=== PATIENT | male | born 1940 | race Caucasian/White ===

== ENCOUNTER → 2017-08-08 | Outpatient (CLI) | payer OTHER, MEDICARE | LOC: FIMAGING 09:18 | PROVIDERS: ATTEND Family Medicine | DX: Z13.820 Encounter for screening for osteoporosis (principal); M81.0 Age-related osteoporosis without current pathological fracture; Z85.3 Personal history of malignant neoplasm of breast ==

== ENCOUNTER 2017-10-19 05:50 | Observation (INO) | payer OTHER, MEDICARE ==
--- NOTE | 2017-10-18 15:34 | GHP ---
[f rep st] PREOP HISTORY AND PHYSICAL ADMISSION DIAGNOSIS: Benign prostatic hyperplasia with prostatic calcifications. HISTORY: This is a 77-year-old gentleman who originally was referred because of urinary hematuria an d we had seen him in the office. He had previous photovaporization of the prostate and upon return n ow on cystoscopy, had a stone in the left lateral part of the prostate. We have recommended he under go transurethral resection of this area in an attempt to clean out the stone to prevent hematuria and obstruction. PSA in 2017 was 0.4. PAST MEDICAL HISTORY: Left breast cancer, coronary artery disease, hypercholesterolemia. PAST SURGICAL HISTORY: Back surgery, breast, he had a deep brain stimulator, heart bypass, knee surg linda, laser prostatectomy, shoulder. MEDICATIONS: Alendronate 70 mg, aspirin 81 mg, atorvastatin 80 mg, CoQ10, gabapentin 300 mg, lisinop ril 10 mg, Lovaza 1 g, Lyrica 50 mg, 20 mg, Vytorin 10-80, and Zoloft. ALLERGIES: No known drug allergies. FAMILY HISTORY: Positive for hypertension and heart disease. SOCIAL HISTORY: Moderate drinker. Former smoker. REVIEW OF SYSTEMS: Negative cardiac, respiratory, GI, and endocrine, on the present status. PHYSICAL EXAMINATION: VITAL SIGNS: Stable. CHEST: Clear. HEART: Regular rate and rhythm. ABDOM EN: Normal. No organomegaly, rebound, or guarding. LOWER EXTREMITIES: Normal. At the present time, he is admitted for the TURP. I reviewed his endoscopic notes and at the present time after informed consent, he is to undergo the TUR of the prostate. Copy requested to: /[id number]/[facility]
[2017-10-19] MEDS ORDERED: LIDOCAINE 2% JELLY 20 ML (UROJECT) ONE (06:49)
[2017-10-19] MEDS ORDERED: ceFAZolin 2 GM/SWFI 2 GM/20 ML SYR IVP ONE (07:01)
--- NOTE | 2017-10-19 07:01 | PDHPUP ---
History & Physical Update H&P update statement: This history and physical update is based on an assessment of the patient which was completed after admission or registration (within 24 hours), but prior to the surgery/procedure. H&P update: H&P reviewed & patient examined, no change in patient's condition since H&P completed
--- NOTE | 2017-10-19 07:09 | PDANEPAE ---
ANE History of Present Illness turp ANE Past Medical History - Cardiovascular History Hx Hypertension: Yes Hx Arrhythmias: No Hx Chest Pain: No Hx Coronary Artery / Peripheral Vascular Disease: Yes Hx CHF / Valvular Disease: No Hx Palpitations: No Cardiovascular History Comment: CABG X4 - 2005. CARDIAC CATH 2013. HYPERCHOLESTEROLEMIA - Pulmonary History Hx COPD: No Hx Asthma/Reactive Airway Disease: No Hx Recent Upper Respiratory Infection: No Hx Oxygen in Use at Home: No Hx Sleep Apnea: No Sleep Apnea Screening Result - Last Documented: Negative - Neurologic History Hx Cerebrovascular Accident: No Hx Seizures: No Hx Dementia: No Neurologic History Comment: DBS FOR TREMORS - GENERATORS IN CHEST - Endocrine History Hx Diabetes: No Hypothyroid: No Hyperthyroid: No - Renal History Hx Renal Disorders: Yes Renal History Comment: PROSTATE - Liver History Hx Hepatic Disorders: No - Neurological & Psychiatric Hx Hx Neurological and Psychiatric Disorders: Yes Neurological / Psychiatric History Comment: NEUROPATHY - Cancer History Hx Cancer: Yes Cancer History Comment: BREAST CANCER - Congenital Disorder History Hx Congenital Disorders: No - GI History Hx Gastrointestinal Disorders: No - Other Health History Other Health History: NEG - Chronic Pain History Chronic Pain: Yes (FEET NEUROPATHY & BACK) - Surgical History Prior Surgeries: CARDIAC CATH 2013. CABG X4 2005. CATARACTS. DBS IMPLANT- 2011/CHEST GENERATORS. AVEL TKA. AVEL MASTECTOMY. AVEL SHOULDER REPLACED. THUMB SURG L. ULNAR NERVE TRANSPORT ANE Review of Systems Review of Systems: - Exercise capacity METS (RN): 4 METS ANE Patient History - Allergies Allergies/Adverse Reactions: No Known Allergies Allergy (Verified 10/19/17 06:47) - Home Medications Home Medications: Alendronate Sodium [Fosamax 70 MG (*)] 70 mg PO TU@0700 10/04/17 [Last Taken ] Atorvastatin Calcium [Lipitor 40 mg (*)] 80 mg PO HS 10/04/17 [Last Taken ] Calcium Carb W/Vit D [Calcium Carb W/Vit D 500/200 (*)] 500 mg PO DAILY [Last Taken 10/12/17] Cholecalciferol Vit D3 [Vitamin D3 2000 units tab (OTC)] 2,000 units PO DAILY [Last Taken 10/12/17] Finasteride [Proscar 5 MG (*)] 5 mg PO DAILY 10/04/17 [Last Taken 10/17/17] Glucosamine Sulfate [Glucosamine Sulfate 500 MG (*)] 1,500 mg PO DAILY 10/04/17 [Last Taken 10/12/17] Herbals/Supplements -Info Only 1 ea PO DAILY 10/04/17 [Last Taken 10/12/17] Lisinopril [Zestril 10 mg (*)] 10 mg PO DAILY 10/04/17 [Last Taken 10/17/17] Magnesium Oxide [Magnesium Oxide 400 mg (*)] 400 mg PO DAILY 10/04/17 [Last Taken 10/12/17] Naproxen Sodium [Aleve 220 MG (*)] 220 mg PO BID PRN 10/04/17 [Last Taken ] Pregabalin [Lyrica 50mg (*)] 50 mg PO BID 10/04/17 [Last Taken 10/17/17] Sertraline HCl [Zoloft 50mg (*)] 50 mg PO DAILY 10/04/17 [Last Taken 10/17/17] Tamoxifen Citrate 20 mg PO DAILY 10/04/17 [Last Taken 10/12/17] - NPO status NPO Status: no food or drink >8 hours - Smoking Hx Smoking Status: Former smoker - Family Anes Hx Family Hx Anesthesia Complications: NEG ANE Labs/Vital Signs - Vital Signs Height: 172.72 cm Weight: 79.379 kg ANE Physical Exam - Airway Mallampati Score: Class 2 Mouth exam: normal dental/mouth exam - Pulmonary Pulmonary: no respiratory distress - Cardiovascular Cardiovascular: regular rate and rhythym - ASA Status ASA Status: II ANE Anesthesia Plan Anesthesia Plan: GA w LMA
[2017-10-19] MEDS ORDERED: MIDAZOLAM 2 MG/2 ML VIAL IVP ONE (07:15)
[2017-10-19] MEDS ORDERED: MIDAZOLAM 2 MG/2 ML VIAL ONE (07:17)
[2017-10-19] MEDS ORDERED: KETOROLAC 30 MG/1 ML SDV ONE (07:23)
[2017-10-19] MEDS ORDERED: LIDOCAINE 2% 5 ML SDV ONE (07:23)
[2017-10-19] MEDS ORDERED: fentaNYL 100 MCG/2 ML INJ ONE (07:23)
[2017-10-19] MEDS ORDERED: PROPOFOL 200 MG/20 ML VIAL ONE (07:23)
[2017-10-19] MEDS ORDERED: DEXAMETHASONE 4 MG/ML VIAL ONE ×2 (07:23)
[2017-10-19] MEDS ORDERED: ROCURONIUM 50 MG/5 ML VIAL ONE (07:56)
[2017-10-19] MEDS ORDERED: ONDANSETRON 4 MG/2 ML VIAL IVP PRN (08:25)
[2017-10-19] MEDS ORDERED: fentaNYL 100 MCG/2 ML INJ IVP PRN (08:25)
[2017-10-19] MEDS ORDERED: PHENYLEPHRINE HCL 100 MCG/ML SYR IVP PRN (08:25)
[2017-10-19] MEDS ORDERED: NALOXONE HCL 0.4 MG/ML INJ IVP PRN (08:25)
[2017-10-19] MEDS ORDERED: ALBUTEROL 3 ML DEYVIAL IH PRN (08:25)
--- NOTE | 2017-10-19 08:25 | POSTANESTH ---
Post Anesthetic Evaluation Cardiovascular Status: Normal, Stable Respiratory Status: Normal, Stable Level of Consciousness/Mental Status: Can Participate in Eval Pain Control: Adequate, Prn Tx Ordered Nausea/Vomiting Control: Adequate, Prn Tx Ordered Complications Possibly Related to Anesthesia: None Noted
--- NOTE | 2017-10-19 08:32 | GOP ---
[f rep st] OPERATIVE REPORT DATE OF OPERATION: 10/19/2017 SURGEON: Justen Carrion MD ANESTHESIA: General anesthesia. 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 POSTOPERATIVE DIAGNOSIS: Inflammatory benign prostatic hypertrophy with obstruction and prostatic ca lculi. PROCEDURE PERFORMED: Transurethral resection of the prostate. FINDINGS: DESCRIPTION OF PROCEDURE: After appropriate time-out, being prepped and draped in normal sterile fas hion, the scope was passed in the bladder. Bladder had +3 trabeculation and no tumors or stones wer e in the bladder. He had an inflammatory area on the left side of the prostate with previous stone t hat had been impregnated. So at that point, I was able to resect the prostate at the right lateral l obe, right portion of the posterior lobe, left lateral lobe and left portion of the posterior lobe. I did not resect the bladder neck because of previous GreenLight laser and I left some anterior tissu e of the prostate in attempt to prevent any bladder neck contraction. At the end of the procedure, b ladder was Ellik 'd free of all chips and clots. Visualization revealed no residual chips or clots. Ureteral orifices preserved. External sphincter approximated at the midline symmetrically and Uro-j et placed in urethra. A 22 three-way catheter passed in the bladder, 60 cc balloon inflated, tractio n placed and irrigated clear. He will be admitted for postoperative care. I will talk to his a bout the postop issues and prostate chips were sent for pathologic assessment. /[id number]/[facility]
[2017-10-19] MEDS ORDERED: OPIUM/BELLADONNA ALKALO SUPP PR PRN (08:35)
[2017-10-19] MEDS ORDERED: NAPROXEN SODIUM 220 MG PO PRN (08:37)
[2017-10-19] MEDS ORDERED: D5W LR 1,000 ML IV SCH (08:45)
[2017-10-19] MEDS ORDERED: MAGNESIUM OXIDE 400 MG PO SCH (09:00)
[2017-10-19] MEDS ORDERED: [UNRECOGNIZED DRUG - OTHER] PO SCH (09:00)
[2017-10-19] MEDS ORDERED: GLUCOSAMINE SULFATE 1500 MG PO SCH (09:00)
[2017-10-19] MEDS ORDERED: NON-FORMULARY NEW DRUG (Lisinopril [Zestril 10 Mg (*)] 10 MG) PO SCH (09:00)
[2017-10-19] MEDS ORDERED: NON-FORMULARY NEW DRUG (Tamoxifen Citrate [Tamoxifen Citrate] 20 MG) PO SCH (09:00)
[2017-10-19] MEDS ORDERED: PREGABALIN 50 MG PO SCH (09:00)
[2017-10-19] MEDS ORDERED: SERTRALINE HCL 50 MG PO SCH (09:00)
[2017-10-19] MEDS ORDERED: CHOLECALCIFEROL PO SCH (09:00)
[2017-10-19] MEDS ORDERED: [UNRECOGNIZED DRUG - OTHER] PO SCH (09:00)
[2017-10-19] MEDS ORDERED: CALCIUM CARBONATE PO SCH (09:00)
[2017-10-19] MEDS: NAPROXEN SODIUM 220 MG TAB PO PRN (10:13)
--- NOTE | 2017-10-19 10:47 | ASMTCMCOM ---
CM Note CM Note Notes: Patient chart reviewed. S/P TURP this am. Needs to be determined. CM to follow. Plan: TBD Date Signed: 10/19/2017 10:46 AM Electronically Signed By:Hailey Cross RN
[2017-10-19] MEDS: TAMOXIFEN CITRATE 10 MG TAB PO SCH (10:54)
[2017-10-19] MEDS: LISINOPRIL 10 MG TAB PO SCH (11:19)
[2017-10-19] MEDS: GLUCOSAMINE SULF 500 MG CAP PO SCH (11:19)
[2017-10-19] MEDS: CHOLECALCIFEROL VIT D3 2,000 UNITS TAB/CAP PO SCH (11:19)
[2017-10-19] MEDS: MAGNESIUM OXIDE 400 MG TAB PO SCH (11:19)
[2017-10-19] MEDS: PREGABALIN 50 MG CAP PO SCH ×2 (11:20→22:34)
[2017-10-19] MEDS: SERTRALINE HCL 50 MG TAB PO SCH (11:20)
[2017-10-19] MEDS: HYDROCODONE/APAP 5/325 TAB PO PRN ×2 (13:45→18:39)
[2017-10-19] MEDS ORDERED: ATORVASTATIN CALCIUM 40 MG TAB PO SCH (21:00)
[2017-10-19] MEDS ORDERED: ATORVASTATIN CALCIUM 80 MG PO SCH (21:00)
[2017-10-20] MEDS ORDERED: CALCIUM CARB W/VIT D 500 MG TAB PO SCH (09:00)
[2017-10-20] MEDS: PREGABALIN 50 MG CAP PO SCH (09:34)
[2017-10-20] MEDS: CHOLECALCIFEROL VIT D3 2,000 UNITS TAB/CAP PO SCH (09:35)
[2017-10-20] MEDS: GLUCOSAMINE SULF 500 MG CAP PO SCH (09:35)
[2017-10-20] MEDS: MAGNESIUM OXIDE 400 MG TAB PO SCH (09:36)
[2017-10-20] MEDS: LISINOPRIL 10 MG TAB PO SCH (09:36)
[2017-10-20] MEDS: SERTRALINE HCL 50 MG TAB PO SCH (09:44)
[2017-10-20] MEDS: NAPROXEN SODIUM 220 MG TAB PO PRN (09:44)
[2017-10-20] MEDS: TAMOXIFEN CITRATE 10 MG TAB PO SCH (10:57)
--- NOTE | 2017-10-20 13:10 | ASMTLACE ---
LACE Length of stay for Answers: 1 day current admission Acuity / Level of Answers: Yes Care: Did the patient have an inpatient admission? Comorbidities - select Answers: Coronary Artery Disease all that apply Other Notes: BPH Score: 7 Date Signed: 10/20/2017 01:10 PM Electronically Signed By:Hailey Cross RN
--- NOTE | 2017-10-20 13:12 | ASMTCMCOM ---
CM Note CM Note Notes: Chart reviewed. Patient medically cleared to discharge. No needs identified at present. CM available should other needs arise. Plan: Home no needs. Date Signed: 10/20/2017 01:12 PM Electronically Signed By:Hailey Cross RN
[2017-10-20 14:45] VITALS: BP 137/76
--- NOTE | 2017-10-20 16:29 | SOAPPROG ---
SOAP Progress Note Assessment/Plan: Assessment: BPH, POD 1 , good voiding and dc Plan: DC home , path benign 10/20/17 16:27 Subjective: pod 1, doing well Objective: Vital Signs Temp Pulse Resp BP Pulse Ox 36.3 C 73 16 137/76 H 95 10/20/17 14:44 10/20/17 14:44 10/20/17 14:44 10/20/17 14:44 10/20/17 14:44 10/19/17 10/20/17 10/21/17 05:59 05:59 05:59 Intake Total 1489 561 Output Total 850 4050 Balance 639 -0404 Physical Exam - Physical Exam General Appearance: alert Respiratory: No respiratory distress Cardiac/Chest: regular rate, rhythm Back: No CVA tenderness Extremities: No calf tenderness Neuro/Psych: alert, oriented x 3 ICD10 Worksheet Patient Problems: Problems Problem Status Onset BPH with obstruction/lower urinary tract symptoms Acute - ICD10 Problem Qualifiers (1) BPH with obstruction/lower urinary tract symptoms
--- NOTE | 2017-10-20 16:29 | GDS ---
[f rep st] DISCHARGE SUMMARY PREOPERATIVE DIAGNOSIS: Benign prostatic hypertrophy. POSTOPERATIVE DIAGNOSIS: Benign prostatic hypertrophy. This gentleman underwent a TURP of his prostate without difficulty. He had his catheter removed and has been voiding spontaneously with small postvoid residual. He is to go home and follow up in our o ffice in 3 weeks. /[id number]/[facility]
[2017-10-24] MEDS ORDERED: ALENDRONATE SODIUM 70 MG PO SCH (07:00)
[2017-10-24] MEDS ORDERED: ALENDRONATE SODIUM 70 MG TAB PO SCH (07:00)
== END 2017-10-20 16:00 | disposition home or self-care (01) ==
LOC: INTOOBSV 05:50 → F1N 05:50
PROVIDERS: ADMIT Specialist; ATTEND Specialist
PROC: 0VT08ZZ Resection of Prostate, Via Natural or Artificial Opening Endoscopic (ICD-10-PCS; principal; 2017-10-19 07:15)
DX: N40.1 Benign prostatic hyperplasia with lower urinary tract symptoms (principal); I25.10 Atherosclerotic heart disease of native coronary artery without angina pectoris; E78.00 Pure hypercholesterolemia, unspecified; E78.5 Hyperlipidemia, unspecified; Z85.3 Personal history of malignant neoplasm of breast; Z87.891 Personal history of nicotine dependence
CPT/HCPCS: 52601; 88305; J0690; J1100; J1200; J2250; J2704; J3010; J1885; J2370

== ENCOUNTER → 2018-05-31 | Outpatient (CLI) | payer OTHER, MEDICARE | LOC: BHLMT 09:45 | PROVIDERS: ATTEND Internal Medicine Cardiovascular Disease | DX: I25.10 Atherosclerotic heart disease of native coronary artery without angina pectoris (principal); I44.30 Unspecified atrioventricular block; I10 Essential (primary) hypertension; E78.5 Hyperlipidemia, unspecified; Z95.1 Presence of aortocoronary bypass graft | CPT/HCPCS: 93005-PO ==